=== PATIENT | female | born 1990 | race Caucasian/White ===

== ENCOUNTER 2019-03-22 19:17 | Observation (INO) ==
[2019-03-22 20:27] LABS: Bilirubin,Urine Negative (Negative); Blood,Urine Negative (Negative); Clarity,Urine Clear (Clear); Color,Urine Yellow (Yellow); Glucose,Urine (UA) Normal (Normal); Ketones,Urine Negative (Negative); Specific Gravity,Urine < 1.005 (1.010-1.025)
[2019-03-22 20:28] LABS: Amphetamine Screen,Urine Negative ng/mL (Cutoff=1000); Barbiturate Screen,Urine Negative ng/mL (Cutoff=200); Benzodiazepines Screen,Urine Negative ng/mL (Cutoff=200); Cannabinoid Screen,Urine Positive ng/mL (Cutoff = 50); Cocaine Screen,Urine Negative ng/mL (Cutoff= 300); Leukocyte Esterase,Urine Small (Negative); Nitrite,Urine Negative (Negative); Opiate Screen,Urine Negative ng/mL (Cutoff=300); Phencyclidine Screen,Urine Negative ng/mL (Cutoff=25); Protein,Urine Negative (Neg-Trace); Urobilinogen,Urine Normal (Normal)
[2019-03-22 20:29] LABS: Squamous Epithelial Cell,Urine Many per lpf (None-Few)
[2019-03-22] MEDS ORDERED: Ondansetron ODT 4 MG TAB.RAPDIS SL ONE (20:41)
--- NOTE | 2019-03-22 21:00 | Emergency Department Note ---
Disposition Clinical Impression: Suicidal ideation, Benzodiazepine abuse Disposition: Admitted As Inpatient Condition: Fair Time of Disposition: 21:00 Psych HPI - General Chief Complaint: ED Psychiatric Symptoms Stated Complaint: SI Time Seen by Provider: 03/22/19 19:33 Source: patient Mode of arrival: ambulatory Limitations: no limitations Nursing Notes Reviewed: Yes Vital Signs Reviewed: Yes - History of Present Illness HPI Narrative: 29-year-old female brought to the emergency department for evaluation of suicidal ideation. Patient states she has had thoughts of suicide over the past year but has not acted on them. Patient has a history of depression, anxiety, PTSD. Patient became concerned because she had thoughts about driving her car into oncoming traffic today. Patient denied fever, chills, nausea, vomiting. Did not try to hurt herself today. Patient denies illicit drug use other than marijuana. - Related Data Home Medications Medication Instructions Recorded Confirmed Clonazepam 1 mg PO TID PRN 02/26/19 03/22/19 Hyoscyamine 0.375 mg PO BID 02/26/19 03/22/19 Omeprazole 40 mg PO QDPC 02/26/19 03/22/19 Oxazepam 15 mg PO TID 02/26/19 03/22/19 Rexulti 3 mg PO QDPC 02/26/19 03/22/19 Venlafaxine HCl ER 300 mg PO QDPC 02/26/19 03/22/19 Allergies Allergy/AdvReac Type Severity Reaction Status Date / Time No Known Allergies Allergy Verified 03/22/19 19:37 All systems ED: reviewed and negative except as stated. Review of Systems: As Per HPI Past Medical History - Past Medical History Attestation: Yes The following information was validated with the patient. Source: patient Medical history: Reports: asthma Psychiatric history: Reports: anxiety, depression, PTSD, other - Social History Smoking Status: Current every day smoker Smokeless Tobacco Status: No Alcohol use: Reports: occasionally Drug use: Reports: marijuana Physical Exam General: Alert and in no acute distress Skin: Warm, dry, intact Head: Normocephalic and atraumatic Neck: Supple, trachea midline and no tenderness Cardiovascular: RRR, no murmur, normal perfusion Respiratory: CTAB, no wheezing, cough, or respiratory distress Musculoskeletal: Normal strength, no tenderness, swelling or deformity GI: Soft, nontender, nondistended. Bowel sounds present Neuro: A&O to person, place, time and situation. No focal deficits noted on exam - General General appearance: alert, in no apparent distress Course Vital Signs Temperature 98.7 F 03/22/19 19:25 Pulse Rate 88 03/22/19 19:25 Respiratory Rate 16 03/22/19 19:25 Blood Pressure 149/94 03/22/19 19:25 O2 Sat by Pulse Oximetry 96 03/22/19 19:25 Temperature 97.8 F 03/23/19 06:58 Pulse Rate 60 03/23/19 06:58 Respiratory Rate 19 03/23/19 06:58 Blood Pressure 106/65 03/23/19 06:58 O2 Sat by Pulse Oximetry 99 03/23/19 06:58 Oxygen Delivery Oxygen Delivery Room Air Psych - MDM Narrative Medical decision making narrative: Patient was medically cleared and evaluated by behavioral health. Patient care transferred to Dr. Woodson pending laboratory evaluation, reevaluation, behavior health evaluation and disposition. - Medical Records Medical records reviewed: Yes I reviewed the patient's medical records. - Lab Data Result diagrams: 03/23/19 04:24 03/23/19 02:24 Lab Results 03/22/19 03/22/19 03/22/19 Range/Units 19:20 19:20 19:20 WBC (4.3-11.1) K/mcL RBC (3.82-4.97) M/mcL Hgb (11.5-15.4) g/dL Hct (35.3-44.9) % MCV (83.0-100.0) fL MCH (28.0-33.3) pg MCHC (31.6-35.5) g/dL RDW (11.5-14.5) % Plt Count (140-400) K/mcL MPV (9.4-12.4) fL Immature Gran % (0-4) % Seg Neutrophils % % Lymphocytes % % Monocytes % % Eosinophils % % Basophils % % Neutrophils # (1.6-8.9) K/mcL Lymphocytes # (0.6-4.6) K/mcL Monocytes # (0.0-1.3) K/mcL Eosinophils # (0.0-0.6) K/mcL Basophils # (0.0-0.2) K/mcL Sodium (136-145) mEq/L Potassium (3.5-5.1) mEq/L Chloride (98-107) mEq/L Carbon Dioxide (23-29) mEq/L BUN (6-20) mg/dL Creatinine (0.60-1.20) mg/dL Est GFR ( Amer) (> 60) Est GFR (Non-Af Amer) (> 60) BUN/Creatinine Ratio (6-26) Glucose (70-105) mg/dL Calculated Osmolality (280-300) Calcium (8.6-10.3) mg/dL Urine Color Yellow (Yellow) Urine Clarity Clear (Clear) Urine pH 7.0 (5.0-8.0) pH Units Ur Specific [place] < 1.005 L (1.010-1.025) Urine Protein Negative (Neg-Trace) mg/dL Urine Glucose (UA) Normal (Normal) mg/dL Urine Ketones Negative (Negative) mg/dL Urine Blood Negative (Negative) Urine Nitrite Negative (Negative) Urine Bilirubin Negative (Negative) Urine Urobilinogen Normal (Normal) mg/dL Ur Leukocyte Esterase Small H (Negative) Urine Microscopic RBC 3-5 H (0-3) per hpf Urine Microscopic WBC 5-15 H (0-3) per hpf Ur Squamous Epith Cells Many H (None-Few) per lpf Urine Test Negative (Negative) Salicylates (15.0-30.0) mg/dL Urine Opiates Screen Negative (Acbkke=524) ng/mL Acetaminophen (10-20) mcg/mL Ur Barbiturates Screen Negative (Oulqdc=830) ng/mL Ur Phencyclidine Scrn Negative (Cutoff=25) ng/mL Ur Amphetamines Screen Negative (Brcujb=5500) ng/mL U Benzodiazepines Scrn Negative (Roawat=763) ng/mL Urine Cocaine Screen Negative (Cutoff= 300) ng/mL U Marijuana (THC) Screen Positive H (Cutoff = 50) ng/mL Ur Drug Screen Interp See Below Ethyl Alcohol (Less than 10) mg/dL 03/22/19 03/22/19 Range/Units 20:46 20:46 WBC 8.2 (4.3-11.1) K/mcL RBC 4.42 (3.82-4.97) M/mcL Hgb 11.4 L (11.5-15.4) g/dL Hct 35.9 (35.3-44.9) % MCV 81.2 L (83.0-100.0) fL MCH 25.8 L (28.0-33.3) pg MCHC 31.8 (31.6-35.5) g/dL RDW 14.9 H (11.5-14.5) % Plt Count 267 (140-400) K/mcL MPV 9.9 (9.4-12.4) fL Immature Gran % 0.4 (0-4) % Seg Neutrophils % 49.9 % Lymphocytes % 41.3 % Monocytes % 5.9 % Eosinophils % 1.7 % Basophils % 0.8 % Neutrophils # 4.1 (1.6-8.9) K/mcL Lymphocytes # 3.4 (0.6-4.6) K/mcL Monocytes # 0.5 (0.0-1.3) K/mcL Eosinophils # 0.1 (0.0-0.6) K/mcL Basophils # 0.1 (0.0-0.2) K/mcL Sodium 138 (136-145) mEq/L Potassium 4.0 (3.5-5.1) mEq/L Chloride 104 (98-107) mEq/L Carbon Dioxide 26 (23-29) mEq/L BUN 9 (6-20) mg/dL Creatinine 0.69 (0.60-1.20) mg/dL Est GFR ( Amer) > 60 (> 60) Est GFR (Non-Af Amer) > 60 (> 60) BUN/Creatinine Ratio 13 (6-26) Glucose 85 (70-105) mg/dL Calculated Osmolality 284 (280-300) Calcium 9.0 (8.6-10.3) mg/dL Urine Color (Yellow) Urine Clarity (Clear) Urine pH (5.0-8.0) pH Units Ur Specific [place] (1.010-1.025) Urine Protein (Neg-Trace) mg/dL Urine Glucose (UA) (Normal) mg/dL Urine Ketones (Negative) mg/dL Urine Blood (Negative) Urine Nitrite (Negative) Urine Bilirubin (Negative) Urine Urobilinogen (Normal) mg/dL Ur Leukocyte Esterase (Negative) Urine Microscopic RBC (0-3) per hpf Urine Microscopic WBC (0-3) per hpf Ur Squamous Epith Cells (None-Few) per lpf Urine Test (Negative) Salicylates < 2.5 L (15.0-30.0) mg/dL Urine Opiates Screen (Bplkrb=349) ng/mL Acetaminophen < 10 L (10-20) mcg/mL Ur Barbiturates Screen (Jmehdk=343) ng/mL Ur Phencyclidine Scrn (Cutoff=25) ng/mL Ur Amphetamines Screen (Oiqcey=1556) ng/mL U Benzodiazepines Scrn (Ekotha=784) ng/mL Urine Cocaine Screen (Cutoff= 300) ng/mL U Marijuana (THC) Screen (Cutoff = 50) ng/mL Ur Drug Screen Interp Ethyl Alcohol < 10 (Less than 10) mg/dL Psychiatric Medical Clearance - Medical Clearance Checklist Medical History: No Social History Section defined Current Vitals: Last Vital Signs Temp 97.8 F 03/23/19 06:58 Pulse 60 03/23/19 06:58 Resp 19 03/23/19 06:58 BP 106/65 03/23/19 06:58 Pulse Ox 99 03/23/19 06:58 Psychiatric Lab Panel: Drug Levels and Toxicity 03/22/19 03/22/19 19:20 20:46 Urine Opiates Screen Negative Acetaminophen < 10 L Ur Barbiturates Screen Negative Ur Phencyclidine Scrn Negative Ur Amphetamines Screen Negative U Benzodiazepines Scrn Negative Urine Cocaine Screen Negative U Marijuana (THC) Screen Positive H Ethyl Alcohol < 10 Abnormal Labs: Abnormal lab results Hgb 11.4 g/dL (11.5-15.4) L 03/22/19 20:46 MCV 81.2 fL (83.0-100.0) L 03/22/19 20:46 MCH 25.8 pg (28.0-33.3) L 03/22/19 20:46 RDW 14.9 % (11.5-14.5) H 03/22/19 20:46 Ur Specific [place] < 1.005 (1.010-1.025) L 03/22/19 19:20 Ur Leukocyte Esterase Small (Negative) H 03/22/19 19:20 3-5 per hpf (0-3) H 03/22/19 19:20 5-15 per hpf (0-3) H 03/22/19 19:20 Ur Squamous Epith Cells Many per lpf (None-Few) H 03/22/19 19:20 Salicylates < 2.5 mg/dL (15.0-30.0) L 03/22/19 20:46 Acetaminophen < 10 mcg/mL (10-20) L 03/22/19 20:46 U Marijuana (THC) Screen Positive ng/mL (Cutoff = 50) H 03/22/19 19:20 Statement of Medical Clearance: I have evaluated the patient, reviewed diagnostic information, and certify that the patient's medical condition is sufficiently stable that transfer to the psychiatric unit does not pose a significant risk of deterioration.
[2019-03-22 21:09] LABS: Basophils # 0.1 K/mcL (0.0-0.2); Basophils % 0.8 %; Eosinophils # 0.1 K/mcL (0.0-0.6); Eosinophils % 1.7 %; Hematocrit 35.9 % (35.3-44.9); Hemoglobin 11.4 g/dL (11.5-15.4); Immature Granulocytes % 0.4 % (0-4); Lymphocytes # 3.4 K/mcL (0.6-4.6); Lymphocytes % 41.3 %; Mean Corpuscular HGB Conc 31.8 g/dL (31.6-35.5); Mean Corpuscular Hemoglobin 25.8 pg (28.0-33.3); Mean Corpuscular Volume 81.2 fL (83.0-100.0); Mean Platelet Volume 9.9 fL (9.4-12.4); Monocytes # 0.5 K/mcL (0.0-1.3); Monocytes % 5.9 %; Neutrophils # 4.1 K/mcL (1.6-8.9); Platelet Count 267 K/mcL (140-400); Red Blood Count 4.42 M/mcL (3.82-4.97); Red Cell Distribution Width 14.9 % (11.5-14.5); Segmented Neutrophils % 49.9 %
[2019-03-22 21:29] LABS: Acetaminophen < 10 mcg/mL (10-20); BUN/Creatinine Ratio 13 (6-26); Blood Urea Nitrogen 9 mg/dL (6-20); Carbon Dioxide 26 mEq/L (23-29); Chloride 104 mEq/L (98-107); Ethanol < 10 mg/dL (Less than 10); Glucose 85 mg/dL (70-105); Osmolality,Calculated 284 (280-300); Salicylate < 2.5 mg/dL (15.0-30.0); Sodium 138 mEq/L (136-145); eGFR For Non-African Americans > 60 (> 60)
--- NOTE | 2019-03-22 22:02 | Emergency Department Note ---
Disposition Clinical Impression: Suicidal ideation, Benzodiazepine abuse Disposition: Admitted As Inpatient Condition: Fair Referrals: NONE,PCP [Primary Care Provider] - Forms: ED Satisfaction Letter Time of Disposition: 00:17 General Adult HPI - General Chief complaint: ED Psychiatric Symptoms Stated complaint: SI Time Seen by Provider: 03/22/19 19:33 Source: patient Mode of arrival: ambulatory Limitations: no limitations - History of Present Illness Pain Scale: 0 - Related Data Home Medications Medication Instructions Recorded Confirmed Clonazepam 1 mg PO TID PRN 02/26/19 03/22/19 Hyoscyamine 0.375 mg PO BID 02/26/19 03/22/19 Omeprazole 40 mg PO QDPC 02/26/19 03/22/19 Oxazepam 15 mg PO TID 02/26/19 03/22/19 Rexulti 3 mg PO QDPC 02/26/19 03/22/19 Venlafaxine HCl ER 300 mg PO QDPC 02/26/19 03/22/19 Allergies Allergy/AdvReac Type Severity Reaction Status Date / Time No Known Allergies Allergy Verified 03/22/19 19:37 Past Medical History - Past Medical History Medical history: Reports: asthma Psychiatric history: Reports: anxiety, depression, PTSD, other - Social History Smoking Status: Current every day smoker Smokeless Tobacco Status: No Alcohol use: Reports: occasionally Drug use: Reports: marijuana Physical Exam - General Limitations: no limitations General appearance: alert, in no apparent distress Course Course Narrative: This patient was signed out to me at shift change from Dr. Clarence Carrasquillo. Please refer to his note for complete details of the history and physical examination. Patient presented with a complaint of suicidal ideation. At shift change she is still awaiting lab work for medical clearance and then consultation to [facility]. Labs returned and are unremarkable. Patient medically cleared for psychiatric evaluation. [address] psychiatry department was consulted to evaluate patient in the emergency department. After evaluation by the [address] psychiatry department and consultation with the on-call psychiatrist a have requested the patient be admitted to the medical service for observation and for benzodiazepine withdrawal symptoms. They will consult on the patient in the hospital and help manage her psychiatric issues. - Consultations Consultation #1: The hospitalist, Dr. Toro, was consulted and accepted admission of the patient. Time: 00:10 Vital Signs Temperature 98.7 F 03/22/19 19:25 Pulse Rate 88 03/22/19 19:25 Respiratory Rate 16 03/22/19 19:25 Blood Pressure 149/94 03/22/19 19:25 O2 Sat by Pulse Oximetry 96 03/22/19 19:25 Temperature 98.7 F 03/22/19 19:25 Pulse Rate 88 03/22/19 19:25 Respiratory Rate 16 03/22/19 19:25 Blood Pressure 149/94 03/22/19 19:25 O2 Sat by Pulse Oximetry 96 03/22/19 19:25 Oxygen Delivery Oxygen Delivery Room Air Medical Decision Making - Lab Data Lab results reviewed: Yes I reviewed the patient's lab results. Result diagrams: 03/22/19 20:46 03/22/19 20:46 Lab Results 03/22/19 03/22/19 03/22/19 Range/Units 19:20 19:20 19:20 WBC (4.3-11.1) K/mcL RBC (3.82-4.97) M/mcL Hgb (11.5-15.4) g/dL Hct (35.3-44.9) % MCV (83.0-100.0) fL MCH (28.0-33.3) pg MCHC (31.6-35.5) g/dL RDW (11.5-14.5) % Plt Count (140-400) K/mcL MPV (9.4-12.4) fL Immature Gran % (0-4) % Seg Neutrophils % % Lymphocytes % % Monocytes % % Eosinophils % % Basophils % % Neutrophils # (1.6-8.9) K/mcL Lymphocytes # (0.6-4.6) K/mcL Monocytes # (0.0-1.3) K/mcL Eosinophils # (0.0-0.6) K/mcL Basophils # (0.0-0.2) K/mcL Sodium (136-145) mEq/L Potassium (3.5-5.1) mEq/L Chloride (98-107) mEq/L Carbon Dioxide (23-29) mEq/L BUN (6-20) mg/dL Creatinine (0.60-1.20) mg/dL Est GFR ( Amer) (> 60) Est GFR (Non-Af Amer) (> 60) BUN/Creatinine Ratio (6-26) Glucose (70-105) mg/dL Calculated Osmolality (280-300) Calcium (8.6-10.3) mg/dL Urine Color Yellow (Yellow) Urine Clarity Clear (Clear) Urine pH 7.0 (5.0-8.0) pH Units Ur Specific [place] < 1.005 L (1.010-1.025) Urine Protein Negative (Neg-Trace) mg/dL Urine Glucose (UA) Normal (Normal) mg/dL Urine Ketones Negative (Negative) mg/dL Urine Blood Negative (Negative) Urine Nitrite Negative (Negative) Urine Bilirubin Negative (Negative) Urine Urobilinogen Normal (Normal) mg/dL Ur Leukocyte Esterase Small H (Negative) Urine Microscopic RBC 3-5 H (0-3) per hpf Urine Microscopic WBC 5-15 H (0-3) per hpf Ur Squamous Epith Cells Many H (None-Few) per lpf Urine Test Negative (Negative) Salicylates (15.0-30.0) mg/dL Urine Opiates Screen Negative (Zulswh=267) ng/mL Acetaminophen (10-20) mcg/mL Ur Barbiturates Screen Negative (Kbfamn=423) ng/mL Ur Phencyclidine Scrn Negative (Cutoff=25) ng/mL Ur Amphetamines Screen Negative (Niuevn=4812) ng/mL U Benzodiazepines Scrn Negative (Jswlbo=197) ng/mL Urine Cocaine Screen Negative (Cutoff= 300) ng/mL U Marijuana (THC) Screen Positive H (Cutoff = 50) ng/mL Ur Drug Screen Interp See Below Ethyl Alcohol (Less than 10) mg/dL 03/22/19 03/22/19 Range/Units 20:46 20:46 WBC 8.2 (4.3-11.1) K/mcL RBC 4.42 (3.82-4.97) M/mcL Hgb 11.4 L (11.5-15.4) g/dL Hct 35.9 (35.3-44.9) % MCV 81.2 L (83.0-100.0) fL MCH 25.8 L (28.0-33.3) pg MCHC 31.8 (31.6-35.5) g/dL RDW 14.9 H (11.5-14.5) % Plt Count 267 (140-400) K/mcL MPV 9.9 (9.4-12.4) fL Immature Gran % 0.4 (0-4) % Seg Neutrophils % 49.9 % Lymphocytes % 41.3 % Monocytes % 5.9 % Eosinophils % 1.7 % Basophils % 0.8 % Neutrophils # 4.1 (1.6-8.9) K/mcL Lymphocytes # 3.4 (0.6-4.6) K/mcL Monocytes # 0.5 (0.0-1.3) K/mcL Eosinophils # 0.1 (0.0-0.6) K/mcL Basophils # 0.1 (0.0-0.2) K/mcL Sodium 138 (136-145) mEq/L Potassium 4.0 (3.5-5.1) mEq/L Chloride 104 (98-107) mEq/L Carbon Dioxide 26 (23-29) mEq/L BUN 9 (6-20) mg/dL Creatinine 0.69 (0.60-1.20) mg/dL Est GFR ( Amer) > 60 (> 60) Est GFR (Non-Af Amer) > 60 (> 60) BUN/Creatinine Ratio 13 (6-26) Glucose 85 (70-105) mg/dL Calculated Osmolality 284 (280-300) Calcium 9.0 (8.6-10.3) mg/dL Urine Color (Yellow) Urine Clarity (Clear) Urine pH (5.0-8.0) pH Units Ur Specific [place] (1.010-1.025) Urine Protein (Neg-Trace) mg/dL Urine Glucose (UA) (Normal) mg/dL Urine Ketones (Negative) mg/dL Urine Blood (Negative) Urine Nitrite (Negative) Urine Bilirubin (Negative) Urine Urobilinogen (Normal) mg/dL Ur Leukocyte Esterase (Negative) Urine Microscopic RBC (0-3) per hpf Urine Microscopic WBC (0-3) per hpf Ur Squamous Epith Cells (None-Few) per lpf Urine Test (Negative) Salicylates < 2.5 L (15.0-30.0) mg/dL Urine Opiates Screen (Bwessx=425) ng/mL Acetaminophen < 10 L (10-20) mcg/mL Ur Barbiturates Screen (Fwurkl=950) ng/mL Ur Phencyclidine Scrn (Cutoff=25) ng/mL Ur Amphetamines Screen (Sbvslt=1113) ng/mL U Benzodiazepines Scrn (Kcwpho=478) ng/mL Urine Cocaine Screen (Cutoff= 300) ng/mL U Marijuana (THC) Screen (Cutoff = 50) ng/mL Ur Drug Screen Interp Ethyl Alcohol < 10 (Less than 10) mg/dL
[2019-03-22] MEDS ORDERED: Fluconazole 100 MG TABLET PO ONE (23:37)
[2019-03-22] MEDS ORDERED: Nicotine 21 MG PATCH.TD24 TD ONE (23:37)
[2019-03-23] MEDS ORDERED: Naloxone 0.4 MG/ML INJ IVP PRN (00:13)
[2019-03-23] MEDS ORDERED: *HR* LORazepam 2 MG/ML VIAL IVP PRN ×2 (00:16)
[2019-03-23] MEDS ORDERED: Ondansetron ODT 4 MG TAB.RAPDIS SL PRN (02:18)
--- NOTE | 2019-03-23 02:32 | Internal Med History&Physical ---
<Gustavo Musa - Last Filed: 03/23/19 03:57> Date of Encounter: 03/23/19 Time of Encounter: 02:00 Internal Medicine - H&P: HPI Chief complaint: SI Admitted From: Emergency Dept Plans for Post Hospital Care: Home History of present illness: Ms. Knox is a 29 year old female with PMHx of depression, PTSD, anxiety, asthma, IBS who presents for evaluation of SI. She came to ED because she had feelings of hurting herself earlier today. She felt like she wanted to drive into oncoming traffic. She was recently seen in [facility]'s ED for SI in 02/15, but she was discharged after being cleared by psychiatry with low suspicion for self harm. She was referred to several local psychiatric services, but didn't go anywhere because she lived out of town at the time. Vitals in ED showed mild hypertension, otherwise unremarkable. Tox screen only positive for marijuana. UA showed small leukocyte esterase and WBCs with many squamous cells. She was given dose of zofran in ED for mild nausea. Psychiatry saw patient but they would like her to be admitted to medicine service due to concern for benzodiazepine withdrawal. Patient resting comfortably in bed on my exam and not complaining of any symptoms at the moment. She has been depressed with intermittent thoughts of hurting herself for over a year, but did not act on them. She reports she has been taking six times her prescribed dose of oxazepam and clonazepam for the past few months. Her last dose of these medications was the morning of 03/22, a nd she took 3 pills of each. She denies wanting to hurt herself and is glad she came to [facility] for help. She admits to recent smoking history over the past year. She admits to 1-2 beers per week and daily marijuana use. She denies other drug use. She denies fevers, YANG, chest pain, SOB, abdominal pain, n/v, changes in bowel/bladder habits, numbness/tingling. Past Med Surg Social Fam HX - Past Medical History Medical history: asthma Psychiatric history: anxiety, depression, PTSD, other - Social History Smoking Status: Current every day smoker Smokeless Tobacco Status: No Alcohol use: occasionally Drug use: marijuana Internal Medicine - H&P: Meds Clonazepam 1 mg PO TID PRN 02/26/19 [History] Hyoscyamine 0.375 mg PO BID 02/26/19 [History] Omeprazole 40 mg PO QDPC 02/26/19 [History] Oxazepam 15 mg PO TID 02/26/19 [History] Rexulti 3 mg PO QDPC 02/26/19 [History] Venlafaxine HCl ER 300 mg PO QDPC 02/26/19 [History] Allergy/AdvReac Type Severity Reaction Status Date / Time No Known Allergies Allergy Verified 03/22/19 19:37 All Systems PM: A 10-system review of systems was performed and is negative for pertinent findings except as documented above in the HPI. - Constitutional Vitals: Temp Pulse Resp BP Pulse Ox 98.4 F 66 16 126/90 96 03/23/19 02:25 03/23/19 02:25 03/23/19 02:25 03/23/19 02:25 03/23/19 02:25 General appearance: Present: A&O X 3, pleasant, no acute distress Exam: Patient resting comfortably in bed. She is not agitated or displaying any signs of withdrawal at the moment. - Eye Eye exam: Present: EOMI, PERRL. Absent: conjunctival injection Pupils: Present: normal accommodation - Respiratory Respiratory exam: Present: CTAB - Cardiovascular Cardiovascular exam: Present: RRR - GI/Abdominal GI/Abdominal exam: Present: normal bowel sounds, soft, no peritoneal signs. Absent: distended, tenderness - Extremities Exam Extremities exam: Present: normal capillary refill, warm, radial pulses palpable and symmetrical. Absent: pedal edema, tenderness - Neurological Exam Neurological exam: Present: alert, CN II-XII intact, oriented X3, reflexes normal, no focal deficits, strengths equal and symetr throughout. Absent: facial droop, speech deficit - Expanded Neurological Exam Cerebellar function: finger to nose: Normal, heel to lewis: Normal - Psychiatric Psychiatric exam: Present: normal affect, normal mood - Skin Skin exam: Present: dry, warm Internal Med - H&P Results - Labs CBC & Chem 7: 03/22/19 20:46 03/23/19 02:24 Labs: Short CBC 03/22/19 Range/Units 20:46 WBC 8.2 (4.3-11.1) K/mcL Hgb 11.4 L (11.5-15.4) g/dL Hct 35.9 (35.3-44.9) % Plt Count 267 (140-400) K/mcL Neutrophils # 4.1 (1.6-8.9) K/mcL BMP 03/22/19 20:46 Sodium 138 Potassium 4.0 Chloride 104 Carbon Dioxide 26 BUN 9 Creatinine 0.69 Glucose 85 Calcium 9.0 Urine 03/22/19 Range/Units 19:20 Urine Color Yellow (Yellow) Urine Clarity Clear (Clear) Urine pH 7.0 (5.0-8.0) pH Units Ur Specific [place] < 1.005 L (1.010-1.025) Urine Protein Negative (Neg-Trace) mg/dL Urine Glucose (UA) Normal (Normal) mg/dL - Assessment and Plan (1) Suicidal ideation Current Visit: Yes Status: Acute Assessment and plan: Patient presented with thoughts of hurting herself by driving into oncoming traffic She did not act on these thoughts She was seen in ED in January 2019 for SI, but was discharged because psych deemed her low risk of self harm Psychiatry evaluated her this admission, but would like her to be admitted to medicine service in anticipation of benzo withdrawal Patient is not currently expressing SI or HI on my assessment, she is very pleasant and is in agreement with treatment plan Continued home venlafaxine for depression Continued observation (2) Benzodiazepine abuse Current Visit: Yes Status: Acute Assessment and plan: Patient has prescribed oxazepam and clonazepam, but admits to taking 6 times her prescribed dose Her last dose of each was the morning of 03/23, in which she reports taking 3 pills of each She is not currently displaying symptoms of withdrawal, but withdrawal is likely/expected according to history Initial tox screen was only positive for marijuana use, but patient admits to benzo abuse, will repeat tox screen Treat symptomatically Haldol PRN for agitation (3) IBS (irritable bowel syndrome) Current Visit: Yes Status: Chronic Assessment and plan: Continue home medication Qualifiers: Irritable bowel syndrome type: unspecified Qualified Code(s): K58.9 - Irritable bowel syndrome without diarrhea (4) DVT prophylaxis Current Visit: Yes Status: Acute Assessment and plan: Subcutaneous heparin (5) Depression Current Visit: Yes Status: Chronic Assessment and plan: Continue home venlafaxine Qualifiers: Depression Type: unspecified Qualified Code(s): F32.9 - Major depressive disorder, single episode, unspecified - Time Spent With Patient Total time spent is greater than 50% in coordination of care (as documented) at patient's floor/unit and/or counseling patient: <Jacquie Toro - Last Filed: 03/23/19 05:22> Date of Encounter: 03/23/19 Internal Medicine - H&P: HPI History of present illness: Ms. Knox is a 29 year old female Past Med Surg Social Fam HX - Family History Mother Living Status: Still Living Father Living Status: Still Living All Systems PM: A 10-system review of systems was performed and is negative for pertinent findings except as documented above in the HPI. - Constitutional Vitals: Temp Pulse Resp BP Pulse Ox 98.4 F 66 16 126/90 96 03/23/19 02:25 03/23/19 02:25 03/23/19 02:25 03/23/19 02:25 03/23/19 02:25 Internal Med - H&P Results - Labs CBC & Chem 7: 03/22/19 20:46 03/23/19 02:24 Labs: Short CBC 03/22/19 Range/Units 20:46 WBC 8.2 (4.3-11.1) K/mcL Hgb 11.4 L (11.5-15.4) g/dL Hct 35.9 (35.3-44.9) % Plt Count 267 (140-400) K/mcL Neutrophils # 4.1 (1.6-8.9) K/mcL BMP 03/22/19 03/23/19 20:46 02:24 Sodium 138 138 Potassium 4.0 4.3 Chloride 104 106 Carbon Dioxide 26 25 BUN 9 8 Creatinine 0.69 0.65 Glucose 85 80 Calcium 9.0 9.1 Urine 03/22/19 Range/Units 19:20 Urine Color Yellow (Yellow) Urine Clarity Clear (Clear) Urine pH 7.0 (5.0-8.0) pH Units Ur Specific [place] < 1.005 L (1.010-1.025) Urine Protein Negative (Neg-Trace) mg/dL Urine Glucose (UA) Normal (Normal) mg/dL - Assessment and Plan (1) Suicidal ideation Current Visit: Yes Status: Acute (2) Benzodiazepine abuse Current Visit: Yes Status: Acute (3) DVT prophylaxis Current Visit: Yes Status: Acute (4) IBS (irritable bowel syndrome) Current Visit: Yes Status: Chronic Qualifiers: Irritable bowel syndrome type: unspecified Qualified Code(s): K58.9 - Irr itable bowel syndrome without diarrhea (5) Depression Current Visit: Yes Status: Chronic Qualifiers: Depression Type: unspecified Qualified Code(s): F32.9 - Major depressive disorder, single episode, unspecified - Time Spent With Patient Total time spent is greater than 50% in coordination of care (as documented) at patient's floor/unit and/or counseling patient: - Attending Attestation I performed a history and physical examination of the patient and discussed her management with the resident. I reviewed the resident's note and agree with the documented plan of care. In short patient is a 29-year-old female with a past medical history of depression, PTSD and anxiety who presented to the ED with suicidal ideation. She was evaluated by psychiatry in the ED and due to concern for benzodiazepine withdrawal, recommended admission to medicine. Patient reports she has been taking 6 times her normal normal scheduled doses of her benzodiazepines for the past 2 months. She is currently on 15 mg of oxazepam 3 times a day as well as clonazepam 1 mg 3 times a day as needed. Patient feels that her regular dose was not helping her control her anxiety. She has been more depressed lately. She last took benzodiazepines last this morning taking 3 tablets of clonazepam. Patient reports to drinking 3 beers a week. Denies any drug use. On arrival patient was afebrile and hemodynamically stable. Laborat ory workup was otherwise unremarkable. Her urine toxicology did test positive for marijuana but was negative for benzodiazepines. Repeat urine sample will be sent for reassessment. Patient was placed on [facility] protocol. Psychiatry consult. We will maintain one-to-one sitter. Monitor for signs of withdrawal.
[2019-03-23] MEDS: 0.9 % Sodium Chloride 1,000 ML IVC SCH ×4 (03:21→23:20)
[2019-03-23 03:34] LABS: BUN/Creatinine Ratio 12 (6-26); Blood Urea Nitrogen 8 mg/dL (6-20); Calcium 9.1 mg/dL (8.6-10.3); Carbon Dioxide 25 mEq/L (23-29); Chloride 106 mEq/L (98-107); Glucose 80 mg/dL (70-105); Osmolality,Calculated 283 (280-300); Potassium 4.3 mEq/L (3.5-5.1); Sodium 138 mEq/L (136-145); eGFR For Non-African Americans > 60 (> 60)
[2019-03-23] MEDS ORDERED: Haloperidol Lactate 5 MG/ML VIAL IVP PRN (04:04)
[2019-03-23 05:03] LABS: Basophils # 0.1 K/mcL (0.0-0.2); Basophils % 0.8 %; Eosinophils # 0.2 K/mcL (0.0-0.6); Eosinophils % 1.9 %; Hematocrit 34.9 % (35.3-44.9); Hemoglobin 11.1 g/dL (11.5-15.4); Immature Granulocytes % 0.1 % (0-4); Lymphocytes # 3.9 K/mcL (0.6-4.6); Mean Corpuscular HGB Conc 31.8 g/dL (31.6-35.5); Mean Corpuscular Hemoglobin 25.8 pg (28.0-33.3); Mean Platelet Volume 10.6 fL (9.4-12.4); Monocytes # 0.5 K/mcL (0.0-1.3); Monocytes % 5.7 %; Neutrophils # 3.3 K/mcL (1.6-8.9); Platelet Count 230 K/mcL (140-400); Red Blood Count 4.31 M/mcL (3.82-4.97); Red Cell Distribution Width 14.9 % (11.5-14.5); Segmented Neutrophils % 42.5 %
[2019-03-23] MEDS: *HR* Heparin 5,000 UNIT/ML VIAL SQ SCH ×2 (05:27→16:49)
[2019-03-23] MEDS: *HR* LORazepam 2 MG/ML VIAL IVP PRN ×3 (05:33→18:52)
[2019-03-23] MEDS: Hyoscyamine SL 0.125 MG TAB.SUBL PO SCH ×2 (08:27→20:25)
[2019-03-23] MEDS: Venlafaxine XR (24 HR) 150 MG CAP.ER.24H PO SCH (08:27)
--- NOTE | 2019-03-23 10:20 | Event Note ---
Date of Encounter: 03/23/19 Time of Encounter: 10:20 Patient was seen earlier this morning by hospitalist services-she has been admitted for suicidal ideations. She is being monitored currently for benzo withdrawal patient was previously on clonazepam and oxazepam-urine tox screen was negative for benzos. Patient states she took them last on 03/23/2019-she currently appears to have flat a fact. I asked the patient if she had any further thoughts of harming herself. She stated "while I was in the bathroom she thought about hanging herself." We will continue with suicide OBSERVATION as well as seizure precautions continuous cardiac monitoring and IV fluids. [facility] for benzo withdrawal Psychiatry has been consulted and appreciate recommendations. Once patient is medically cleared she will go to [facility] for further treatment.
[2019-03-23] MEDS: Nicotine 14 MG PATCH.TD24 TD SCH (20:47)
--- NOTE | 2019-03-23 20:53 | Consult Note ---
Date of Encounter: 03/23/19 Time of Encounter: 15:20 Assessment & Recommendation (1) Suicidal ideation Current visit: Yes Status: Acute History of Present Illness Patient: new to practice Requesting Physician: Jacquie Toro MD Reason for consult: SI History of present illness: Ms. Knox is a 29 year old female who came to ED with Suicidal Ideation. She reports that she has been having problems sleeping recently and stated doubling up her doses of Benzo's to try to help herself sleep. She has been feeling emotionally unstable and still does. She states earlier in the day she had thoughts of hanging herself in the bathroom. She has been stable on her current psychotropic medications for about the past year, but now notices in recent weeks, she is having increased issues. Increased irritability, decreased sleep and just not feeling "right in my mind." She has been haivng thoughts of dying and self harm, and wants to get help and stabilized before it gets worse. She knows that she has been improperly using her medications, and is currently on the medical unit for possible withdraw precautions. She states she does feel a little sweaty at times, but does not feel she is going through withdrawal. She denies ever having had a seizure or having gone through withdrawal before. CC: Jacquie Toro MD Past Med Surg Social Fam HX - Past Medical History Medical history: asthma - Past Psychiatric History Psychiatric history: Reports: anxiety, depression, PTSD, previous psychiatric hospitalization Family psychiatric history: Unknown Family History of Suicide: Unknown - Social History Smoking Status: Current every day smoker Smokeless Tobacco Status: No Alcohol use: occasionally Drug use: marijuana - Family History Mother Living Status: Still Living Father Living Status: Still Living Medications & Allergies Brexpiprazole [Rexulti] 3 mg PO QPM 03/23/19 [History] Omeprazole [PriLOSEC] 40 mg PO QAM 03/23/19 [History] Oxazepam 15 mg PO TID PRN 03/23/19 [History] Venlafaxine HCl [Venlafaxine HCl ER] 300 mg PO QAM 03/23/19 [History] clonazePAM [Clonazepam] 1 mg PO TID PRN 03/23/19 [History] valACYclovir [Valtrex] 500 mg PO DAILY 03/23/19 [History] Allergy/AdvReac Type Severity Reaction Status Date / Time No Known Allergies Allergy Verified 03/22/19 19:37 Review of Systems Psychiatric: Reports: depression, anxiety, abnormal sleep pattern, suicidal ideation Psychiatry Exam - Constitutional Vitals: Temp Pulse Resp BP Pulse Ox 98.3 F 74 16 123/85 99 03/23/19 18:49 03/23/19 18:49 03/23/19 18:49 03/23/19 18:49 03/23/19 18:49 General appearance: age & developmentally appropriate, well-nourished, unkempt Additional observations: Resting comfortably in bed. - Musculoskeletal Gait: other (in bed) Station: [facility] - Psychiatric Patient Orientation: Yes Person, Yes Time, Yes Place, Yes Circumstance Level of alertness: Follows commands Behavior: anxious, tearful (mildly) Psychomotor activity: Slowed Eye Contact: Maintains Eye Contact Mood Description: Depressed, Anxious Speech Volume: Normal Speech pattern: normal rate, normal rhythm, normal tone Language & Vocabulary: consistent with education Thought Process: Intact Thought Content: Yes Suicidal ideation Attention Span Ability: Capable of Focused Attention Memory Description: Grossly Intact Patient Reliability: Reliable Historian Intelligence Estimate: Average Judgment: Fair Insight: Partial Results - Drug Levels and Toxicology Drug Levels and Toxicology: Drug Levels and Toxicity 03/22/19 20:46 Acetaminophen < 10 L Ethyl Alcohol < 10 - Labs Labs: Laboratory Last Values WBC 7.9 K/mcL (4.3-11.1) 03/23/19 04:24 RBC 4.31 M/mcL (3.82-4.97) 03/23/19 04:24 Hgb 11.1 g/dL (11.5-15.4) L 03/23/19 04:24 Hct 34.9 % (35.3-44.9) L 03/23/19 04:24 MCV 81.0 fL (83.0-100.0) L 03/23/19 04:24 MCH 25.8 pg (28.0-33.3) L 03/23/19 04:24 MCHC 31.8 g/dL (31.6-35.5) 03/23/19 04:24 RDW 14.9 % (11.5-14.5) H 03/23/19 04:24 Plt Count 230 K/mcL (140-400) 03/23/19 04:24 MPV 10.6 fL (9.4-12.4) 03/23/19 04:24 Immature Gran % 0.1 % (0-4) 03/23/19 04:24 Seg Neutrophils % 42.5 % 03/23/19 04:24 49.0 % 03/23/19 04:24 5.7 % 03/23/19 04:24 1.9 % 03/23/19 04:24 0.8 % 03/23/19 04:24 3.3 K/mcL (1.6-8.9) 03/23/19 04:24 3.9 K/mcL (0.6-4.6) 03/23/19 04:24 0.5 K/mcL (0.0-1.3) 03/23/19 04:24 0.2 K/mcL (0.0-0.6) 03/23/19 04:24 0.1 K/mcL (0.0-0.2) 03/23/19 04:24 Sodium 138 mEq/L (136-145) 03/23/19 02:24 Potassium 4.3 mEq/L (3.5-5.1) 03/23/19 02:24 Chloride 106 mEq/L (98-107) 03/23/19 02:24 Carbon Dioxide 25 mEq/L (23-29) 03/23/19 02:24 BUN 8 mg/dL (6-20) 03/23/19 02:24 0.65 mg/dL (0.60-1.20) 03/23/19 02:24 Est GFR ( Amer) > 60 (> 60) 03/23/19 02:24 Est GFR (Non-Af Amer) > 60 (> 60) 03/23/19 02:24 12 (6-26) 03/23/19 02:24 Glucose 80 mg/dL (70-105) 03/23/19 02:24 283 (280-300) 03/23/19 02:24 Calcium 9.1 mg/dL (8.6-10.3) 03/23/19 02:24 Yellow (Yellow) 03/22/19 19:20 Clear (Clear) 03/22/19 19:20 7.0 pH Units (5.0-8.0) 03/22/19 19:20 Ur Specific [place] < 1.005 (1.010-1.025) L 03/22/19 19:20 Negative mg/dL (Neg-Trace) 03/22/19 19:20 Normal mg/dL (Normal) 03/22/19 19:20 Negative mg/dL (Negative) 03/22/19 19:20 Negative (Negative) 03/22/19 19:20 Negative (Negative) 03/22/19 19:20 Negative (Negative) 03/22/19 19:20 Normal mg/dL (Normal) 03/22/19 19:20 Ur Leukocyte Esterase Small (Negative) H 03/22/19 19:20 3-5 per hpf (0-3) H 03/22/19 19:20 5-15 per hpf (0-3) H 03/22/19 19:20 Ur Squamous Epith Cells Many per lpf (None-Few) H 03/22/19 19:20 Negative (Negative) 03/22/19 19:20 Salicylates < 2.5 mg/dL (15.0-30.0) L 03/22/19 20:46 Negative ng/mL (Vvwyrh=893) 03/22/19 19:20 Acetaminophen < 10 mcg/mL (10-20) L 03/22/19 20:46 Ur Barbiturates Screen Negative ng/mL (Rfnmdd=322) 03/22/19 19:20 Ur Phencyclidine Scrn Negative ng/mL (Cutoff=25) 03/22/19 19:20 Ur Amphetamines Screen Negative ng/mL (Hjpssr=1241) 03/22/19 19:20 U Benzodiazepines Scrn Negative ng/mL (Rjgmdl=301) 03/22/19 19:20 Negative ng/mL (Cutoff= 300) 03/22/19 19:20 U Marijuana (THC) Screen Positive ng/mL (Cutoff = 50) H 03/22/19 19:20 Ur Drug Screen Interp See Below 03/22/19 19:20 Ethyl Alcohol < 10 mg/dL (Less than 10) 03/22/19 20:46 Clotted 03/23/19 02:24 Consult Discharge Plan - Plan Additional Instructions: Continue to monitor for Benzo withdrawal on 1:1 for SI. Then admit to [facility] when medically cleared. Referrals: NONE,PCP [Primary Care Provider] -
[2019-03-23] MEDS: Lactobacillus 1 EACH CAP.SPRINK PO SCH (22:22)
[2019-03-24] MEDS: *HR* LORazepam 2 MG/ML VIAL IVP PRN (00:17)
[2019-03-24] MEDS: 0.9 % Sodium Chloride 1,000 ML IVC SCH ×2 (03:42→11:00)
[2019-03-24] MEDS: *HR* Heparin 5,000 UNIT/ML VIAL SQ SCH ×2 (05:15→18:23)
[2019-03-24 05:42] LABS: Hematocrit 32.9 % (35.3-44.9); Hemoglobin 10.3 g/dL (11.5-15.4); Mean Corpuscular HGB Conc 31.3 g/dL (31.6-35.5); Mean Corpuscular Hemoglobin 25.6 pg (28.0-33.3); Mean Corpuscular Volume 81.8 fL (83.0-100.0); Mean Platelet Volume 10.2 fL (9.4-12.4); Platelet Count 202 K/mcL (140-400); Red Blood Count 4.02 M/mcL (3.82-4.97); Red Cell Distribution Width 14.9 % (11.5-14.5)
[2019-03-24 06:06] LABS: BUN/Creatinine Ratio 11 (6-26); Blood Urea Nitrogen 7 mg/dL (6-20); Calcium 8.7 mg/dL (8.6-10.3); Carbon Dioxide 24 mEq/L (23-29); Chloride 109 mEq/L (98-107); Glucose 87 mg/dL (70-105); Osmolality,Calculated 287 (280-300); Sodium 140 mEq/L (136-145); eGFR For Non-African Americans > 60 (> 60)
[2019-03-24] MEDS: Lactobacillus 1 EACH CAP.SPRINK PO SCH (09:18)
[2019-03-24] MEDS: Venlafaxine XR (24 HR) 150 MG CAP.ER.24H PO SCH (09:19)
[2019-03-24] MEDS: Hyoscyamine SL 0.125 MG TAB.SUBL PO SCH ×2 (09:19→21:51)
[2019-03-24] MEDS ORDERED: clonazePAM 1 MG TABLET PO PRN (13:29)
--- NOTE | 2019-03-24 14:33 | Internal Med Progress Note ---
Hospitalist Progress Note - Encounter Date of Encounter: 03/24/19 Time of Encounter: 12:00 - Subjective Interval History: Patient was seen and examined at bedside. Patient had some anxiety overnight she did receive Ativan as well as Benadryl. Nursing reports that today she expresses anxiety concerning going to [facility] and she was given Haldol. We will di scontinue Haldol as well as CIWA -she does not appear to be withdrawing-up on my assessment patient is calm with no signs of tremors does not appear to be excessively diaphoretic states she is nauseated as she is eating her lunch. She does express anxiety as well as thoughts of harming herself. - Exam Vitals: Temp Pulse Resp BP Pulse Ox 98.3 F 64 17 128/88 98 03/24/19 09:19 03/24/19 09:19 03/24/19 09:19 03/24/19 09:19 03/24/19 09:19 Exam: Skin: Free of rash and discoloration. Eyes: Sclera is white. There is no discharge from eyes. ENMT: Oral/pharyngeal mucosa is normal in appearance. There is no discharge from nose or ears. Respiratory: Normal breath sounds with no crackles and wheezes bilaterally. CV: Heart is regular with no gallop or murmur. GI: Abdomen is flat and soft with no palpable mass or visceromegaly. : There is no tenderness in patient's flanks bilaterally. Neuro exam: He has good strength in upper and lower extremities. He has normal eye movements. Psychiatric: He has normal affect. His thought process is appropriate to the situation. - Assessment and Plan (1) Suicidal ideation Current Visit: Yes Status: Acute Assessment and Plan: Patient presented with thoughts of hurting herself by driving into oncoming traffic She did not act on these thoughts She was seen in ED in January 2019 for SI, but was discharged because psych deemed her low risk of self harm Psychiatry evaluated her this admission, but would like her to be admitted to medicine service in anticipation of benzo withdrawal Patient is not currently expressing SI or HI on my assessment, she is very pleasant and is in agreement with treatment plan Continued home venlafaxine for depression Continued observation 03/24 Patient continues to experience thoughts of harming herself she expressed yesterday that she would hang herself in the bathroom. She has been evaluated by psychiatry and can go to 1 [facility] once she is medically cleared We will continue with venlafaxine for depression Continue suicide OBSERVATION (2) Benzodiazepine abuse Current Visit: Yes Status: Acute Assessment and Plan: Patient has prescribed oxazepam and clonazepam, but admits to taking 6 times her prescribed dose Her last dose of each was the morning of 03/23, in which she reports taking 3 pills of each She is not currently displaying symptoms of withdrawal, but withdrawal is likely/expected according to history Initial tox screen was only positive for marijuana use, but patient admits to benzo abuse, will repeat tox screen Treat symptomatically Haldol PRN for agitation 03/24/2019 Patient has been prescribed Arthropan as well as clonazepam but states that she has been taking 6 times her prescribed dose at night to help her sleep. She states the last time she took the medication was 03/23. Tox screen was negative for benzos Currently she only reports diaphoresis and some anxiety. We will continue to closely monitor at this time we will discontinue the CiWA and resume low-dose clonazepam We will also discontinue Haldol-patient does not appear to be agitated this time Telemetry does show sinus bradycardia with heart rate 50s to 70s with a first- degree block we will continue to monitor on telemetry-vital signs are stable at this time She Is eating and tolerating meals (3) DVT prophylaxis Current Visit: Yes Status: Acute Assessment and Plan: Subcutaneous heparin (4) IBS (irritable bowel syndrome) Current Visit: Yes Status: Chronic Assessment and Plan: Continue home medication-currently patient is complaining of constipation (5) Depression Current Visit: Yes Status: Chronic Assessment and Plan: Continue home venlafaxine - Time Spent with Patient Total time spent is greater than 50% in coordination of care (as documented) at patient's floor/unit and/or counseling patient: Internal Medicine: Result - Labs CBC & Chem 7: 03/24/19 05:03 03/24/19 05:03 Labs: Short CBC 03/24/19 Range/Units 05:03 WBC 6.0 (4.3-11.1) K/mcL Hgb 10.3 L (11.5-15.4) g/dL Hct 32.9 L (35.3-44.9) % Plt Count 202 (140-400) K/mcL BMP 03/24/19 05:03 Sodium 140 Potassium 4.0 Chloride 109 H Carbon Dioxide 24 BUN 7 Creatinine 0.62 Glucose 87 Calcium 8.7 Consult Discharge Plan - Plan Additional Instructions: Continue to monitor for Benzo withdrawal on 1:1 for SI. Then admit to [facility] when medically cleared. Referrals: NONE,PCP [Primary Care Provider] - (4) IBS (irritable bowel syndrome) Qualifiers: Irritable bowel syndrome type: unspecified Qualified Code(s): K58.9 - Irritable bowel syndrome without diarrhea (5) Depression Qualifiers: Depression Type: unspecified Qualified Code(s): F32.9 - Major depressive disorder, single episode, unspecified
[2019-03-24] MEDS: Nicotine 14 MG PATCH.TD24 TD SCH (21:54)
[2019-03-25] MEDS ORDERED: *HR* Promethazine 25 MG/ML VIAL IVP ONE (01:56)
[2019-03-25 02:58] LABS: Basophils # 0.1 K/mcL (0.0-0.2); Basophils % 0.8 %; Eosinophils # 0.1 K/mcL (0.0-0.6); Eosinophils % 1.8 %; Hematocrit 37.1 % (35.3-44.9); Hemoglobin 11.6 g/dL (11.5-15.4); Immature Granulocytes % 0.1 % (0-4); Lymphocytes # 2.9 K/mcL (0.6-4.6); Lymphocytes % 36.5 %; Mean Corpuscular HGB Conc 31.3 g/dL (31.6-35.5); Mean Corpuscular Hemoglobin 25.4 pg (28.0-33.3); Mean Corpuscular Volume 81.2 fL (83.0-100.0); Mean Platelet Volume 10.6 fL (9.4-12.4); Monocytes # 0.4 K/mcL (0.0-1.3); Monocytes % 5.2 %; Neutrophils # 4.4 K/mcL (1.6-8.9); Platelet Count 245 K/mcL (140-400); Red Blood Count 4.57 M/mcL (3.82-4.97); Red Cell Distribution Width 15.1 % (11.5-14.5); Segmented Neutrophils % 55.6 %
[2019-03-25 03:03] LABS: BUN/Creatinine Ratio 12 (6-26); Blood Urea Nitrogen 9 mg/dL (6-20); Calcium 9.3 mg/dL (8.6-10.3); Carbon Dioxide 28 mEq/L (23-29); Chloride 104 mEq/L (98-107); Glucose 86 mg/dL (70-105); Osmolality,Calculated 282 (280-300); Potassium 3.8 mEq/L (3.5-5.1); Sodium 137 mEq/L (136-145); eGFR For Non-African Americans > 60 (> 60)
[2019-03-25 03:36] VITALS: BP 103/69
[2019-03-25] MEDS: *HR* Heparin 5,000 UNIT/ML VIAL SQ SCH (06:04)
--- NOTE | 2019-03-25 07:54 | Discharge Summary ---
- NOTES TO OUTPATIENT PROVIDER Notes to Outpatient Provider: will need follow up with psych as outpatient Orders not resulted at time of discharge: Pending orders 03/24/19 07:58 EKG [ECG 12 lead ECG] [ECG] Routine Date of Encounter: 03/25/19 Time of Encounter: 07:51 - Discharge Diagnosis (1) Suicidal ideation Priority: Primary Status: Acute (2) Benzodiazepine abuse Priority: Secondary Status: Acute (3) IBS (irritable bowel syndrome) Priority: Secondary Status: Chronic Qualifiers: Irritable bowel syndrome type: unspecified Qualified Code(s): K58.9 - Irritable bowel syndrome without diarrhea (4) Depression Priority: Secondary Status: Chronic Qualifiers: Depression Type: unspecified Qualified Code(s): F32.9 - Major depressive disorder, single episode, unspecified Hospital course: Ms. Knox is a 29 year old female status post her depression PTSD anxiety asthma IBS who presented to [facility] with SI. Patient has been experiencing thoughts of hurting herself throughout the day. She wanted to drive into oncoming traffic. She was seen in [facility]'s ED approximately month ago but was cleared by psychiatry for a low suspicion of harm. She will was referred to local psychiatry services but she did not follow-up due to she lived out of town at the time. Tox screen was completed which was positive for marijuana. According to the patient that she was seen by psychiatry previously and was on venlafaxine ozazepam clonazepam-in the past few weeks she is experiencing increased irritability decreased sleep and not feeling herself. She has been tripling her benzodiazepine medications at night to help her sleep. She was admitted to medical services for monitoring for possible benzodiazepine withdrawal. While here patient does confirm some diaphoresis and evening time she does become anxious. Over the past 24 hours she has not received any medications for anxiety and has been calm with stable vital signs. During admission patient has moist thoughts of harming herself and has been observed on suicide. She will be transferred down to for further psychiatric treatment - Time Spent with Patient Total time spent providing and/or coordinating discharge services: - Discharge Medications Prescriptions: No Action Venlafaxine HCl [Venlafaxine HCl ER] 300 mg PO QAM valACYclovir [Valtrex] 500 mg PO DAILY Oxazepam 15 mg PO TID PRN PRN Reason: PANIC ATTACKS Omeprazole [PriLOSEC] 40 mg PO QAM clonazePAM [Clonazepam] 1 mg PO TID PRN PRN Reason: Anxiety Brexpiprazole [Rexulti] 3 mg PO QPM Proair Hfa 2 puff IH PRN PRN PRN Reason: Shortness Of Breath Home Medications: Brexpiprazole [Rexulti] 3 mg PO QPM 03/23/19 [History] Omeprazole [PriLOSEC] 40 mg PO QAM 03/23/19 [History] Oxazepam 15 mg PO TID PRN 03/23/19 [History] Proair Hfa 2 puff IH PRN PRN 03/23/19 [History] Venlafaxine HCl [Venlafaxine HCl ER] 300 mg PO QAM 03/23/19 [History] clonazePAM [Clonazepam] 1 mg PO TID PRN 03/23/19 [History] valACYclovir [Valtrex] 500 mg PO DAILY 03/23/19 [History] Allergies/Adverse Reactions: Allergy/AdvReac Type Severity Reaction Status Date / Time No Known Allergies Allergy Verified 03/22/19 19:37 Date of admission: 03/23/19 00:29 Primary care physician: PCP NONE Consults: 03/23/19 00:14 Consult to Psychiatry [CONS] Routine Consulting Provider: Psychiatry [place] Reason consult: Sitter/1:1 Other Other reason and/or additional details: SI; Symptom concerning for withdrawal 03/23/19 04:04 Consult to Facility Sales And Admin [CONS] Routine Reason for SW Consult: Patient recently moved back to [facility] to live with mother as patient was unable to find a psych doctor in [place] and she ran out of some of her psych meds Discharging clinician: Araseli Joe Anticipated date of discharge: 03/25/19 - Constitutional Vitals: Temp Pulse Resp BP Pulse Ox 97.9 F 62 16 103/69 98 03/25/19 03:35 03/25/19 03:35 03/25/19 03:35 03/25/19 03:35 03/25/19 03:35 General appearance: Present: A&O X 3, pleasant, no acute distress Exam: Skin: Free of rash and discoloration. Eyes: Sclera is white. There is no discharge from eyes. ENMT: Oral/pharyngeal mucosa is normal in appearance. There is no discharge from nose or ears. Respiratory: Normal breath sounds with no crackles and wheezes bilaterally. CV: Heart is regular with no gallop or murmur. GI: Abdomen is flat and soft with no palpable mass or visceromegaly. : There is no tenderness in patient's flanks bilaterally. Neuro exam: He has good strength in upper and lower extremities. He has normal eye movements. Psychiatric: He has normal affect. His thought process is appropriate to the situation. - Patient Status Disposition: Transfer Psychiatric Hosp Condition: Fair Functional capacity at discharge: independent ambulation Overall status at discharge: patient is back to baseline - Discharge Instructions Follow Up With: NONE,PCP [Primary Care Provider] - Additional Instructions: Continue to monitor for Benzo withdrawal on 1:1 for SI. Then admit to [facility] when medically cleared. - Diet and Activity Activity: resume usual activities as tolerated Diet: advance to your usual diet
[2019-03-25] MEDS: Venlafaxine XR (24 HR) 150 MG CAP.ER.24H PO SCH (08:41)
[2019-03-25] MEDS: Hyoscyamine SL 0.125 MG TAB.SUBL PO SCH (08:41)
[2019-03-25] MEDS: Lactobacillus 1 EACH CAP.SPRINK PO SCH (08:41)
[2019-03-25] MEDS ORDERED: NON-FORMULARY MEDICATION 1 EACH EACH (Omeprazole [Prilosec] 40 MG) PO SCH (09:00)
--- NOTE | 2019-03-26 22:44 | Electrocardiograph Report ---
[address] [address] Test Date: 2019-03-24 Pat Name: Sandy Knox Department: 113 Room: 3B Gender: F Building Supervisor: : 1990 Requested By: Araseli Joe Order Number: [id number] Reading MD: Jaimie Ding Measurements Intervals [place] Rate: 59 P: 30 SD: 227 QRS: 42 QRSD: 91 T: 51 QT: 398 QTc: 396 Interpretive Statements SINUS BRADYCARDIA WITH SINUS ARRHYTHMIA WITH FIRST DEGREE AV BLOCK Electronically Signed On 03-26-2019 22:43:31 EDT by Jaimie Ding
== END 2019-03-25 11:40 ==
LOC: 3BNU 19:17 → EMEROOARM 19:17 → 3BNU 03-23 02:08
PROVIDERS: ADMIT Internal Medicine; ATTEND Internal Medicine

== ENCOUNTER 2019-03-25 11:10 | Inpatient (IN) ==
[2019-03-25] MEDS ORDERED: *HR* LORazepam 2 MG/ML VIAL IM PRN (11:37)
[2019-03-25] MEDS ORDERED: *HR* LORazepam 1 MG TABLET PO PRN (11:37)
[2019-03-25] MEDS ORDERED: traZODone 50 MG TABLET PO PRN (11:37)
[2019-03-25] MEDS ORDERED: MOM Conc 10 ML UD.LIQ PO PRN (11:37)
[2019-03-25] MEDS ORDERED: Mag Hydrox/Al Hydrox/Simeth 30 ML UDC PO PRN (11:37)
[2019-03-25] MEDS ORDERED: Haloperidol Lactate 5 MG/ML VIAL IM PRN (11:37)
[2019-03-25] MEDS: hydrOXYzine pamoate 25 MG CAPSULE PO PRN ×2 (12:40→18:46)
[2019-03-25] MEDS: Ibuprofen 400 MG TABLET PO PRN (16:23)
[2019-03-25] MEDS: (Brexpiprazole [Rexulti] 3 MG) PO SCH (21:31)
[2019-03-26] MEDS ORDERED: Nicotine 21 MG PATCH.TD24 TD ONE (00:51)
[2019-03-26] MEDS: hydrOXYzine pamoate 25 MG CAPSULE PO PRN ×3 (00:54→20:28)
[2019-03-26] MEDS: Ibuprofen 400 MG TABLET PO PRN ×2 (06:17→21:45)
[2019-03-26] MEDS: Venlafaxine XR (24 HR) 150 MG CAP.ER.24H PO SCH (08:47)
[2019-03-26] MEDS: Nicotine 21 MG PATCH.TD24 TD SCH (08:47)
[2019-03-26] MEDS: valACYclovir 500 MG TABLET PO SCH (08:49)
--- NOTE | 2019-03-26 14:20 | Psychiatry History & Physical ---
Date of Encounter: 03/26/19 Time of Encounter: 13:20 History of Present Illness Patient Stated Chief Complaint: "The depression has not felt stable." Medicare Admission Attestation: For traditional Medicare patients the provided hospital inpatient services are reasonable and necessary and in the case of services not specified as inpatient-only under 42 CFR 419.22 (n), that they are appropriately provided as inpatient services in accordance 42 CFR 412.3. For Critical Access Hospital the patient may reasonably be expected to be discharged or transferred to a hospital within 96 hours after admission to the Critical Access Hospital. Admitted From: Intrahospital Transfer Plans for Post Hospital Care: Home History of Present Illness: Ms. Knox is a 29 year old female who was admitted to [facility] psychiatric unit from the medical floor after being stabilized for possible benzodiazepine withdrawal. Patient tells me that her depression is not stable. She tells me that she has been having problems with sleep extensively, and explains this is why she was taking extra benzodiazepines. She knew it was more that she was supposed be taking but she been having problems sleeping for weeks. So, she took the extra prescribed medications in order to try to sleep. She states that she is felt reasonably stable over the past year regarding her mental health until recently. She has continuely had a hard time sleeping and feeling rested. She states that she always has an underlying feeling of anxiety. She currently states that she feels hopeless and helpless after having a very bad year. She is homeless, had a breakup of a long-term relationship and feels out of control/does not know where to go. She has low energy, does not like doing things she is like to do and does not see a positive future. In reviewing her mental health symptoms further, she has an extensive history of feeling anxious and agitated. She also has periods of impulsivity and can go days without need for sleep. Although, she knows she needs to sleep. She has had periods where she feels on top of the world, but those are fast and fleeting. She denies any auditory or visual hallucinations. She denies any mind reading or thought control. She states her Effexor has been helpful, but that she needs augmentation in her medications. She talks about her family history and her mother being bipolar as well as her sister. She called her mother to discuss what medications her mother is on. She was told that she thought the Lamictal did very well for her to stabilize her bipolar disorder. Her mother and sister are also on Zoloft. Patient feels that it for sleep and agitation/anxiety improved they would help her depression. Getting some social support and housing, potentially help getting a job and reconnecting with her family would also help with her depression. She is no longer has active plans for suicide but does have thoughts of dying. Past Med Surg Social Fam HX - Past Medical History Medical history: asthma - Past Psychiatric History Psychiatric history: Reports: anxiety, depression, panic disorder, PTSD, prior suicide attempt Past psychiatric history details: SA at 15 y/o by cutting on herself. Several inpatient stays. None at [facility] Family psychiatric history: Yes (Mother and sister; Bipolar) Family History of Suicide: Attempted (Mother, Aunt and Uncle (maternal)) - Social History Smoking Status: Current every day smoker Smokeless Tobacco Status: No Alcohol use: occasionally Drug use: marijuana - Family History Mother Living Status: Still Living Father Living Status: Still Living Medications & Allergies Albuterol Sulfate [Proair Hfa] 2 puff IH Q6H PRN 03/23/19 [History] Brexpiprazole [Rexulti] 3 mg PO HS 03/23/19 [History] Omeprazole [PriLOSEC] 40 mg PO DAILY 03/23/19 [History] Oxazepam 15 mg PO TID PRN 03/23/19 [History] Venlafaxine HCl [Venlafaxine HCl ER] 300 mg PO QAM 03/23/19 [History] clonazePAM [Clonazepam] 1 mg PO TID PRN 03/23/19 [History] valACYclovir [Valtrex] 500 mg PO DAILY PRN 03/23/19 [History] Hyoscyamine Sulfate [Hyoscyamine Sulfate ER] 0.375 mg PO DAILY 03/26/19 [History] Allergy/AdvReac Type Severity Reaction Status Date / Time No Known Allergies Allergy Verified 03/26/19 08:32 Review of Systems Psychiatric: Reports: depression, anxiety, abnormal sleep pattern Exam - HEENT Head exam IM: Present: atraumatic - Neurological Neurological exam: Present: CN II-XII intact (via medical eval on floor), strengths equal and symetr throughout - Constitutional Vitals: Temp Pulse Resp BP Pulse Ox 98.4 F 88 16 126/88 99 03/26/19 09:00 03/26/19 09:00 03/26/19 09:00 03/26/19 09:00 03/26/19 09:00 General appearance: age & developmentally appropriate - Musculoskeletal Gait: normal Station: stiff Strength & Tone: normal for patient - Psychiatric Patient Orientation: Yes Person, Yes Time, Yes Place, Yes Circumstance Level of alertness: Alert Behavior: cooperative, anxious Psychomotor activity: Normal Eye Contact: Maintains Eye Contact Mood Description: Depressed, Anxious Patient description of mood: Depressed Affect description: congruent with mood Speech Volume: Normal Speech pattern: normal rate, normal rhythm, normal tone, fluent Language & Vocabulary: consistent with education Thought Process: Intact, Linear, Goal Oriented Thought Content: Yes Suicidal ideation Attention Span Ability: Capable of Focused Attention Memory Description: Grossly Intact Patient Reliability: Reliable Historian Fund of knowledge: Yes abstraction ability Intelligence Estimate: Average Judgment: Fair Insight: Partial Assessment and Plan (1) Bipolar 1 disorder, depressed Current visit: Yes Status: Acute Plan: Admit inpatient for safety and stabilization, Close observation, Suicide Precautions per unit protocol, Group Therapy, Monitor sleep Risks, benefits, side effects, alternatives discussed w/pt: Yes (Start Lamictal as is the mediation her Bipolar mother takes. Rexuit stopped) Patient agreeable to treatment: Yes Plans for Post Hospital Care: Home Estimated Length of Stay (Days): 7
[2019-03-26] MEDS: (Brexpiprazole [Rexulti] 3 MG) PO SCH (17:13)
[2019-03-26] MEDS: lamoTRIgine 25 MG TABLET PO SCH (20:28)
[2019-03-27] MEDS: Venlafaxine XR (24 HR) 150 MG CAP.ER.24H PO SCH (08:24)
[2019-03-27] MEDS: valACYclovir 500 MG TABLET PO SCH (08:24)
[2019-03-27] MEDS: Nicotine 21 MG PATCH.TD24 TD SCH (08:26)
[2019-03-27] MEDS: hydrOXYzine pamoate 25 MG CAPSULE PO PRN ×2 (10:06→19:18)
--- NOTE | 2019-03-27 13:38 | Psychiatry Progress Note ---
Date of Encounter: 03/27/19 Time of Encounter: 11:15 Subjective Interval history: When asked the patient how she did last night she stated "Not good. I had a nightmare and wound up punching my pillow". She tells me she overall had little sleep. She tried taking the Vistaril yesterday, which did help with her anxiety. She denies any side effects of starting the Lamictal last night. She states that she feels tired today, but much less depressed and is no longer actively feeling suicidal. She is feeling less helpless, less hopeless. She met with her family last night. Her mom and her are on better terms and she can go live with her mother once she discharges from here. This makes her happy.We talked about trying medications to assist with her sleep. She had a PRN trazodone 50 mg last night, but did not take it. I encouraged her to take the to consider it. She said she would. She states she has had trazodone in the past at 150 mg but it made her feel too tired and felt sick. I told her I would put in order, if she wanted, trazodone 100 mg to see if that helped with no side effects. She agreed. I also discussed the possibility of attempting to use Prazosin if the trazodone did not help. I explained the risk-benefit side effects. She said she would consider. We also talked about her use of the nicotine patch as opposed to using the nicotine gum. The nicotine patch is also known to cause sleep disturbance which may not be helping her as she already has problems sleeping. We discussed, she consented to switching over to the nicotine gum instead. Review of Systems Psychiatric: Reports: depression, anxiety, abnormal sleep pattern Results - Vital Signs Vital Signs: Temp Pulse Resp BP Pulse Ox 97.8 F 88 16 122/79 99 03/27/19 08:53 03/27/19 08:53 03/27/19 08:53 03/27/19 08:53 03/27/19 08:53 Assessment and Plan (1) Bipolar 1 disorder, depressed Current visit: Yes Status: Acute Plan: Continue hospitalization, Close observation, Group Therapy, Monitor sleep Risks, benefits, side effects, alternatives discussed w/pt: Yes (Continue Lamictal 25 mg Stat Trazodone 100 mg tonight for sleep) Patient agreeable to treatment: Yes Consult Discharge Plan - Plan Referrals: NONE,PCP [Primary Care Provider] - Psychiatry Exam - Constitutional Vitals: Temp Pulse Resp BP Pulse Ox 97.8 F 88 16 122/79 99 03/27/19 08:53 03/27/19 08:53 03/27/19 08:53 03/27/19 08:53 03/27/19 08:53 General appearance: age & developmentally appropriate, well-groomed, well- nourished - Musculoskeletal Gait: normal Station: relaxed Strength & Tone: normal for patient - Psychiatric Patient Orientation: Yes Person, Yes Time, Yes Place, Yes Circumstance Level of alertness: Alert Behavior: cooperative Psychomotor activity: Normal Eye Contact: Maintains Eye Contact Mood Description: Anxious (less) Patient description of mood: I feel better Affect description: full range, flat (less than yesterday) Speech Volume: Normal Speech pattern: normal rate, normal rhythm, normal tone Language & Vocabulary: consistent with education Thought Process: Intact, Logical, Linear, Goal Oriented Thought Content: Yes Suicidal ideation (no longer) Attention Span Ability: Capable of Focused Attention Memory Description: Grossly Intact Patient Reliability: Reliable Historian Fund of knowledge: Yes abstraction ability Intelligence Estimate: Average Judgment: Good Insight: Full
[2019-03-27] MEDS ORDERED: Nicotine 2 MG GUM BC PRN (13:51)
[2019-03-27] MEDS: (Brexpiprazole [Rexulti] 3 MG) PO SCH (17:42)
[2019-03-27] MEDS: Ibuprofen 400 MG TABLET PO PRN (20:59)
[2019-03-27] MEDS ORDERED: traZODone 50 MG TABLET PO SCH (21:00)
[2019-03-27] MEDS: lamoTRIgine 25 MG TABLET PO SCH (21:00)
[2019-03-28] MEDS: Venlafaxine XR (24 HR) 150 MG CAP.ER.24H PO SCH (09:23)
[2019-03-28] MEDS: valACYclovir 500 MG TABLET PO SCH (09:23)
[2019-03-28 11:04] VITALS: BP 115/81
[2019-03-28] MEDS: hydrOXYzine pamoate 25 MG CAPSULE PO PRN (11:56)
--- NOTE | 2019-03-28 13:47 | Discharge Summary ---
Date of Encounter: 03/28/19 Time of Encounter: 13:45 Diagnosis - Discharge Diagnosis (1) Bipolar 1 disorder, depressed Status: Acute Medications - Discharge Medications Prescriptions: hydrOXYzine pamoate [HydrOXYzine Pamoate] 50 mg PO TID PRN 14 Days #40 capsule PRN Reason: Anxiety lamoTRIgine [Lamictal] 25 mg PO HS 14 Days #14 tablet traZODone [TraZODone] 100 mg PO HS 14 Days #14 tablet Albuterol Sulfate [Proair Hfa] 2 puff IH Q6H PRN 03/23/19 [History] Omeprazole [PriLOSEC] 40 mg PO DAILY 03/23/19 [History] Venlafaxine HCl [Venlafaxine HCl ER] 300 mg PO QAM 03/23/19 [History] valACYclovir [Valtrex] 500 mg PO DAILY PRN 03/23/19 [History] Hyoscyamine Sulfate [Hyoscyamine Sulfate ER] 0.375 mg PO DAILY 03/26/19 [History] hydrOXYzine pamoate [HydrOXYzine Pamoate] 50 mg PO TID PRN 14 Days #40 capsule 03/28/19 [Rx] lamoTRIgine [Lamictal] 25 mg PO HS 14 Days #14 tablet 03/28/19 [Rx] traZODone [TraZODone] 100 mg PO HS 14 Days #14 tablet 03/28/19 [Rx] Allergy/AdvReac Type Severity Reaction Status Date / Time No Known Allergies Allergy Verified 03/26/19 08:32 Provider Date of admission: 03/25/19 11:10 Primary care physician: PCP NONE Psychiatry Exam - Constitutional Vitals: Temp Pulse Resp BP Pulse Ox 98.9 F 100 18 115/81 100 03/28/19 09:00 03/28/19 09:00 03/28/19 09:00 03/28/19 09:00 03/28/19 09:00 General appearance: age & developmentally appropriate, well-groomed, well- nourished - Musculoskeletal Gait: normal Station: relaxed Strength & Tone: normal for patient - Psychiatric Patient Orientation: Yes Person, Yes Time, Yes Place, Yes Circumstance Level of alertness: Alert Behavior: calm, cooperative Psychomotor activity: Normal Eye Contact: Maintains Eye Contact Mood Description: Euthymic/stable Affect description: congruent with mood Speech Volume: Normal Speech pattern: normal rate, normal rhythm, normal tone, fluent Language & Vocabulary: consistent with education Thought Process: Intact, Logical, Linear, Goal Oriented Thought Content: Yes Intact Attention Span Ability: Capable of Focused Attention, Capable of Sustained Attention Memory Description: Grossly Intact Patient Reliability: Reliable Historian Fund of knowledge: Yes abstraction ability Intelligence Estimate: Average Judgment: Good Insight: Full Hospital Course Hospital course: Ms. Knox is a 29 year old female was admitted off the medical floor after having been monitored for Benzodiazepine withdraw after a potential overdose with suicidal ideation. She tells me today, "I slept last night and did not wake up like I was in a medication fog. I feel really good." She did not show any signs of detox on the unit. After we reviewed her mental health symptoms, she has criteria for Bipolar disorder. Other members of her immediate family also have Bipolar Disorder. She has been reconnecting with her mother and her mother 's Bipolar disorder is stable on Lamictal and an antidepressant. After reviewing the R/B/SE of Lamictal, she consented to starting it. She will continue taking Effexor as her antidepressant. We also discussed taking Trazodone. She had been on it before for sleep, and it helped. But she was on it at a high dose and it made her feel foggy. We discussed a lower dose to see if it helped with her sleep. She consented to 100 mg. She slept well on her new med regimen and her mood was stable. She had no adverse side effects and after a couple of days, had housing with her family arranged for a discharge plan. She denied any self harm or harm towards others. She had no psychosis. She had outpatient appointments set up in the community and was discharged in stable condition. Time spent discussing smoking cessation with patient: 3 to 10 minutes Does patient wish to continue nicotine replacement upon disc: No - Time Spent with Patient Total time spent providing and/or coordinating discharge services: 20 min Less than 30 minutes Assessment and Plan - Patient/Caregiver Discharge Instructions Activity: resume usual activities as tolerated Diet: regular diet - Follow up Plan Follow up with: Artemio Schofield [Outside] - 05/08/19 12:30 pm (You have an appointment scheduled for Wednesday, May 08, 2019 at 12:30 PM with Flor Lim for an initial intake assessment. I have asked them to reach out to you if a sooner appointment comes This appointment typically takes 1 1 hours and will cover your current symptoms and goals for treatment. Please complete the New Patient Intake Packet provided to you by [facility] staff and bring this with you to this appointment. Please also bring your insurance card, identification, proof of residence (utility bill or similar piece of mail), and proof of income (if applicable). If you are unable to keep this appointment, please call the office at the number above as soon as possible. ) Jimena De Leon CNP [Advanced Practice Nurse] - 04/05/19 2:45 pm (You have indicated that you would like to get established with a primary care provider. An appointment has been scheduled for you on Friday, April 05, 2019 at 2:45 PM with Jimena De Leon CNP. Please complete the New Patient Welcome Packet to the best of your ability and take it with you to your first appointment. Please also arrive at least 15-30 minutes early to complete the patient registration. Please be sure to bring a photo ID and your insurance information. Please give 24 hour notice if unable to make your appointment. ) Functional capacity at discharge: independent ambulation Overall status at discharge: Stable Disposition: Home, Self-Care Quality - Multiple Antipsychotics Patient discharged on 2 or more antipsychotic medications: No Procedures - Procedures Procedures: Medication Management, Crisis Stabilization, Supportive Therapy, Group Therapy, Psychoeducational Therapy
== END 2019-03-28 14:30 | disposition home or self-care (01) | DRG 885 ==
LOC: 1ANU 11:10
PROVIDERS: ADMIT Psychiatry & Neurology Psychiatry; ATTEND Psychiatry & Neurology Psychiatry